=== PATIENT | male | born 1975 | race Caucasian/White ===

== ENCOUNTER 2019-06-12 14:51 | Emergency (ER) | payer BC ==
[2019-06-12 15:10] VITALS: BP 161/87
--- NOTE | 2019-06-12 15:26 | UC ---
Back Pain HPI - HPI Summary HPI Summary: 39 yo male presents with low back pain. He tells me that he has a history of chronic low back pain for which he has had a fusion for in the . He also sees pain management for injections and norco for his chronic pain. He tells me that 1 week ago he was lifting a cart about waist level and moving it from side to side - did not feel any discomfort in his back at that time, but the next day he developed pain in his left lower back/SI. This has been persisting since that time with occasional painful shocks down his left leg. He has been taking naproxen and his norco with no relief. Denies numbness, tingling, saddle anesthesia, loss of bowel/bladder control. - History of Current Complaint Chief Complaint: UCBackPain Stated Complaint: BACK PAIN Time Seen by Provider: 06/12/19 15:25 Hx Obtained From: Patient Timing: Constant Severity Initially: Moderate Severity Currently: Moderate Pain Intensity: 8 Pain Scale Used: 0-10 Numeric - Allergies/Home Medications Allergies/Adverse Reactions: Allergies Allergy/AdvReac Type Severity Reaction Status Date / Time Penicillins Allergy Hives Verified 06/12/19 15:10 Home Medications: Home Medications QUEtiapine TAB* [Seroquel 25 MG TAB*] 25 mg PO DAILY 06/12/19 [History Confirmed 06/12/19] PMH/Surg Hx/FS Hx/Imm Hx Psychological History: Anxiety, Depression, Bipolar Disorder - Surgical History Surgical History: Yes Surgery Procedure, Year, and Place: spinal fusion lumbar - 1992. right inguinal hernia repair 2011 - Family History Known Family History: Positive: Non-Contributory - Social History Occupation: Employed Full-time Lives: With Family Alcohol Use: Rare Substance Use Type: None Smoking Status (MU): Former Smoker Review of Systems All Other Systems Reviewed And Are Negative: No Constitutional: Positive: Negative Skin: Positive: Negative Respiratory: Positive: Negative Cardiovascular: Positive: Negative Neurovascular: Positive: Negative Musculoskeletal: Positive: Other: - Low back pain Neurological: Positive: Negative Psychological: Positive: Negative Physical Exam - Summary Physical Exam Summary: GENERAL: NAD. WDWN. No pain distress. SKIN: No rashes, sores, lesions, or open wounds. NECK: Supple. FROM. Nontender. No lymphadenopathy. CHEST: CTAB. No r/r/w. No accessory muscle use. Breathing comfortably and in no distress. CV: RRR. Without m/r/g. Pulses intact. Cap refill <2seconds MSK: NTTP over lumbar paraspinal muscles. Mild left SI TTP. Pain with flexion and extension of spine. Positive SLR LEFT for low back pain without radiation. Strength 5/5 B/L LEs including dorsiflexion and plantar flexion. FROM B/L LEs. No edema. NEURO: Alert. Sensations intact B/L LEs L3-S1. Reflexes intact PSYCH: Age appropriate behavior. Triage Information Reviewed: Yes Vital Signs: Initial Vital Signs Temp 98.4 F 06/12/19 15:02 Pulse 82 06/12/19 15:02 Resp 20 06/12/19 15:02 BP 161/87 06/12/19 15:02 Pulse Ox 99 06/12/19 15:02 Vital Signs Reviewed: Yes Diagnostics - Radiology Lumbar Radiology Interpretation Completed By: Radiologist Summary of Radiographic Findings: FINDINGS: ALIGNMENT: The alignment is normal. VERTEBRAL BODIES: There is mild anterolateral marginal osteophyte formation. There is partial sacralization of the L5 vertebral body. JOINTS: There is fusion of the facet joints at L5-S1. There is facet osteoarthritis most pronounced at L4-L5. INTERVERTEBRAL DISCS: There is mild diffuse loss of intervertebral disc height. SOFT TISSUE: Unremarkable. OTHER: The pelvis is unremarkable. The lung bases are clear. IMPRESSION 1. TRANSITIONAL ANATOMY DESCRIBED ABOVE. 2. DEGENERATIVE DISC DISEASE. FACET OSTEOARTHRITIS MOST PRONOUNCED AT L4-L5. THERE IS FUSION OF THE FACET JOINTS AT L5-S1.: Back Pain Course/Dx - Course Course Of Treatment: XR findings as above. Suspect sciatica vs muscle strain vs exacerbation of chronic low back pain. Advised to continue NSAIDs, norco at home, and will rx for prednisone and flexeril - Differential Dx/Diagnosis Provider Diagnosis: Low back pain Discharge ED - Sign-Out/Discharge Documenting (check all that apply): Patient Departure All imaging exams completed and their final reports reviewed: Yes - Discharge Plan Condition: Stable Disposition: HOME Prescriptions: Cyclobenzaprine TAB* [Flexeril 10 MG TAB*] 10 mg PO TID PRN #21 tab PRN Reason: Pain - Moderate predniSONE TAB* [Deltasone 20 MG TAB*] 20 mg PO DAILY #14 tab Patient Education Materials: Chronic Back Pain (DC), Lower Back Exercises (ED) Referrals: Razia Lundy DO [Primary Care Provider] - 1 Week Additional Instructions: If you develop a fever, shortness of breath, chest pain, new or worsening symptoms - please call your PCP or go to the ED immediately. Your blood pressure was high at todays visit. Please see your primary provider within 4 weeks for recheck and re-evaluation. - Billing Disposition and Condition Condition: STABLE Disposition: Home
== END 2019-06-12 16:10 | disposition home or self-care (01) ==
LOC: UCEAST 14:51
DX: G89.29 Other chronic pain (principal); M54.5 Low back pain; F31.9 Bipolar disorder, unspecified; Z87.891 Personal history of nicotine dependence; Z88.0 Allergy status to penicillin
CPT/HCPCS: 72110; 99202; G0463

== ENCOUNTER 2019-07-24 10:36 | Emergency (ER) | payer BC ==
[2019-07-24 11:07] VITALS: BP 143/99
--- NOTE | 2019-07-24 11:44 | UC ---
Headache HPI - HPI Summary HPI Summary: 's patient is a 44-year-old male who presents to the emergency room with a chief complaint of headache and a full feeling in his head. He reports that he was recently incarcerated side of the and he hit his head against the left window. He reports that he was working a helmet. There was no loss of consciousness. He reports that this could be his eighth head concussion. He has no other complaints. - History Of Current Complaint Chief Complaint: UCHeadInjury Stated Complaint: HEAD INJURY Time Seen by Provider: 07/24/19 11:16 Hx Obtained From: Patient Onset/Duration: Gradual Onset Initially Headache Was: Mild Currently Pain Is: Mild Pain Intensity: 2 - Allergies/Home Medications Allergies/Adverse Reactions: Allergies Allergy/AdvReac Type Severity Reaction Status Date / Time Penicillins Allergy Hives Verified 07/24/19 11:07 Home Medications: Home Medications HYDROcodone/ACETAMIN 5-325 MG* [Boyd 5-325 TAB*] 1 tab PO Q6H PRN 07/24/19 [ History Confirmed 07/24/19] PMH/Surg Hx/FS Hx/Imm Hx Previously Healthy: Yes - Surgical History Surgical History: Yes Surgery Procedure, Year, and Place: spinal fusion lumbar - 1992. right inguinal hernia repair 2011. left knee - Family History Known Family History: Positive: Non-Contributory - Social History Alcohol Use: Weekly Substance Use Type: Marijuana Smoking Status (MU): Former Smoker When Did the Patient Quit Smoking/Using Tobacco: 12 years ago Review of Systems All Other Systems Reviewed And Are Negative: Yes Constitutional: Positive: Negative Skin: Positive: Negative Eyes: Positive: Negative ENT: Positive: Negative Respiratory: Positive: Negative Cardiovascular: Positive: Negative Gastrointestinal: Positive: Nausea Genitourinary: Positive: Negative Motor: Positive: Negative Neurovascular: Positive: Negative Musculoskeletal: Positive: Negative Neurological: Positive: Headache Psychological: Positive: Negative Is Patient Immunocompromised?: No Physical Exam - Summary Physical Exam Summary: VITAL SIGNS: Reviewed. GENERAL: Patient is a well developed and nourished male who is sitting comfortable in the stretcher. Patient is not in any acute respiratory distress. HEAD AND FACE: No signs of trauma. No ecchymosis and hematomas. No skull depressions. EYES: PERRLA, EOMI x 2, No injected conjunctiva, no nystagmus. No photophobia. No raccoon eyes. EARS: Hearing grossly intact. Ear canals and tympanic membranes are within normal limits. No discharge or secretions were observed. No hemotympanum. No banegas sign. GCS: 15 MOUTH: Oropharynx within normal limits. NECK: Supple, trachea is midline, no adenopathy, no JVD, no carotid bruit, no c- spine tenderness, neck with full ROM. No meningeal signs, no Kernig's or brudzinskis signs. CHEST: Symmetric, no tenderness at palpation LUNGS: CTA B/L. CVS: RRR, S1 and S2 present, no murmurs appreciated ABDOMEN: Soft, NT, normal BS EXTREMITIES: FROM in all major joints, no edema, no cyanosis or clubbing. NEURO: Alert and oriented x 3. No acute neurological deficits. Speech is normal and follows commands. SKIN: Dry and warm Triage Information Reviewed: Yes Appearance: Well-Appearing Vital Signs: Initial Vital Signs Temp 98 F 07/24/19 11:02 Pulse 65 07/24/19 11:02 Resp 15 07/24/19 11:02 BP 143/99 07/24/19 11:02 Pulse Ox 99 07/24/19 11:02 Vital Signs Reviewed: Yes Headache Course/Dx - Course Course Of Treatment: Head CT, no acute intracranial pathology. Therefore believe that the patient has a concussion. The patient will follow-up with primary care physician. I discussed all the findings and test results with the patient. Patient was instructed that if any of the symptoms return or worsens, if ARTHUR, nausea and vomiting, double vision, decrease hearing, any weakness, numbness or tingling sensation the patient should return immediately to the or go to the ED. Patient understands and agrees. Plan of care was discussed and patient understands and agrees with the plan of care. All questions were answered at patient satisfaction. There were no further complaints or concerns. Patient is alert and oriented x 3. Patient vital signs are stable. Patient is to follow up with primary care physician in the next 2 to 3 days. Patient understands and agrees. - Differential Dx/Diagnosis Provider Diagnosis: Concussion Discharge ED - Sign-Out/Discharge Documenting (check all that apply): Patient Departure All imaging exams completed and their final reports reviewed: Yes - [id number] - Discharge Plan Condition: Stable Disposition: HOME Patient Education Materials: Concussion (ED) Referrals: Florencio To DO [Primary Care Provider] - Additional Instructions: Follow with primary care physician in the next 2 days. - Billing Disposition and Condition Condition: STABLE Disposition: Home
== END 2019-07-24 12:05 | disposition home or self-care (01) ==
LOC: UCEAST 10:36
DX: S06.0X0A Concussion without loss of consciousness, initial encounter (principal); Z88.0 Allergy status to penicillin; Z87.891 Personal history of nicotine dependence; W22.09XA Striking against other stationary object, initial encounter; Y92.9 Unspecified place or not applicable
CPT/HCPCS: 70450; 99211; G0463